=== PATIENT | male | born 1985 | race African-American/Black ===

== ENCOUNTER 2017-07-23 16:18 | Emergency (ER) | payer SELFPAY ==
[~2017-07-23] VITALS: Ht 190.5 cm; Wt 88.5 kg
[2017-07-23 16:21] VITALS: BP 172/124; PULSE 80; RESP 16; TEMP 98.2; O2SAT 98
[2017-07-23] MEDS ORDERED: SODIUM CHLOR 0.9% 1000 ML INJ 1,000 ML IV ONE (16:43)
[2017-07-23] MEDS ORDERED: SODIUM CHLORIDE 0.9% FLUSH 10 ML FLUSH IVF PRN (16:45)
--- NOTE | 2017-07-23 16:50 | PD ---
HPI Chief Complaint: Altered Mental Status Time Seen by Provider: 16:32 Travel History International Travel<30 days: No Contact w/Intl Traveler<30days: No Traveled to known affect area: No History of Present Illness HPI 31-year-old male presents to the emergency department for evaluation of what appears to be a syncopal episode. According to the patient he "fell out". However, he does not know where he was he cannot elaborate on this. He has a text message from a individual who was apparently a bystander who reports that he either had "seizure or stroke". Patient states that he has been under a lot of stress. He reports that his in 19-year-old daughter have been missing for the past 3 days. He states the police are involved. He states this has happened 3 times in the past when he becomes extremely stressed out. Patient reports headache. He answers yes to most questions asked. He reports neck pain and back pain. He reports chest tightness, but no shortness of breath. Patient also reports nausea. He reports history of hypertension, but states he has been off all of his medications for the past 2 months. He denies illicit drug use to me. [facility] Past Medical History Medical History: Denies Significant Hx Cardiovascular Problems: Yes Past Surgical History Surgical History: No Previous Surgery Social History Alcohol Use: No Tobacco Use: No Substance Use: No Allergies-Medications (Allergen,Severity, Reaction): Coded Allergies: No Known Allergies (Verified Allergy, Unknown, 07/23/17) Reported Meds & Prescriptions Reported Meds & Active Scripts Active Lisinopril-Hctz 20-12.5 Mg Tab 1 Tab PO DAILY Review of Systems Except as stated in HPI: all other systems reviewed are Neg Physical Exam Narrative GENERAL: Well-nourished, well-developed male patient, afebrile. SKIN: Focused skin assessment warm/dry. HEAD: Normocephalic. Atraumatic. EYES: No scleral icterus. No injection or drainage. NECK: Supple, trachea midline. No JVD or lymphadenopathy. CARDIOVASCULAR: Regular rate and rhythm without murmurs, gallops, or rubs. Bilateral radial and pedal pulses are 2+. RESPIRATORY: Breath sounds equal bilaterally. No accessory muscle use. Lungs sounds are clear to auscultation. GASTROINTESTINAL: Abdomen soft, non-tender, nondistended. MUSCULOSKELETAL: No cyanosis, or edema. Bilateral upper and lower extremity strength 5/5. All extremities are neurovascularly intact BACK: No obvious deformity. No CVA tenderness. Patient's tenderness to palpation of cervical spine. NEUROLOGICAL: Awake and alert. Cranial nerves II through XII intact. Motor and sensory grossly within normal limits. Five out of 5 muscle strength in all muscle groups. Normal speech. Data Data Last Documented VS Vital Signs Date Time Temp Pulse Resp B/P (MAP) Pulse Ox O2 Delivery O2 Flow Rate FiO2 07/24/17 00:44 62 18 142/96 (111) 96 07/23/17 21:01 Room Air 07/23/17 16:21 98.2 Orders Orders Electrocardiogram (07/23/17 16:43) Complete Blood Count With Diff (07/23/17 16:43) Comprehensive Metabolic Panel (07/23/17 16:43) Magnesium (Mg) (07/23/17 16:43) Ckmb (Isoenzyme) Profile (07/23/17 16:43) Troponin I (07/23/17 16:43) Act Partial Throm Time (Ptt) (07/23/17 16:43) Prothrombin Time / Inr (Pt) (07/23/17 16:43) Urinalysis - C+S If Indicated (07/23/17 16:43) Chest, Single Ap (07/23/17 16:43) Ct Brain W/O Iv Contrast(Rout) (07/23/17 16:43) Ecg Monitoring (07/23/17 16:43) Iv Access Insert/Monitor (07/23/17 16:43) Oximetry (07/23/17 16:43) Sodium Chloride 0.9% Flush (Ns Flush) (07/23/17 16:45) Sodium Chlor 0.9% 1000 Ml Inj (Ns 1000 M (07/23/17 16:43) Lipase (07/23/17 16:43) Drug Screen, Random Urine (07/23/17 16:43) Orthostatic Blood Pressure (07/23/17 16:43) Ct Cerv Spine W/O Contrast (07/23/17 ) CKMB (07/23/17 16:50) CKMB% (07/23/17 16:50) Troponin I (07/23/17 19:50) Electrocardiogram (07/23/17 ) Hydrochlorothiazide (Hydrodiuril) (07/23/17 19:00) Lisinopril (Prinivil) (07/23/17 20:30) Ed Discharge Order (07/24/17 00:09) Labs Laboratory Tests Test 07/23/17 16:50 07/23/17 17:07 07/23/17 20:20 White Blood Count 4.9 TH/MM3 Red Blood Count 4.56 MIL/MM3 Hemoglobin 14.2 GM/DL Hematocrit 40.8 % Mean Corpuscular Volume 89.6 FL Mean Corpuscular Hemoglobin 31.2 PG Mean Corpuscular Hemoglobin Concent 34.9 % Red Cell Distribution Width 12.9 % Platelet Count 278 TH/MM3 Mean Platelet Volume 8.3 FL Neutrophils (%) (Auto) 52.9 % Lymphocytes (%) (Auto) 29.4 % Monocytes (%) (Auto) 10.2 % Eosinophils (%) (Auto) 6.2 % Basophils (%) (Auto) 1.3 % Neutrophils # (Auto) 2.6 TH/MM3 Lymphocytes # (Auto) 1.4 TH/MM3 Monocytes # (Auto) 0.5 TH/MM3 Eosinophils # (Auto) 0.3 TH/MM3 Basophils # (Auto) 0.1 TH/MM3 CBC Comment AUTO DIFF Differential Comment AUTO DIFF CONFIRMED Platelet Estimate NORMAL Platelet Morphology Comment NORMAL Red Cell Morphology Comment NORMAL Prothrombin Time 11.3 SEC Prothromb Time International Ratio 1.0 RATIO Activated Partial Thromboplast Time 32.0 SEC Blood Urea Nitrogen 12 MG/DL Creatinine 1.55 MG/DL Random Glucose 93 MG/DL Total Protein 8.9 GM/DL Albumin 3.8 GM/DL Calcium Level 8.9 MG/DL Magnesium Level 2.2 MG/DL Alkaline Phosphatase 92 U/L Aspartate Amino Transf (AST/SGOT) 50 U/L Alanine Aminotransferase (ALT/SGPT) 31 U/L Total Bilirubin 0.6 MG/DL Sodium Level 140 MEQ/L Potassium Level 3.5 MEQ/L Chloride Level 106 MEQ/L Carbon Dioxide Level 25.9 MEQ/L Anion Gap 8 MEQ/L Estimat Glomerular Filtration Rate 64 ML/MIN Total Creatine Kinase 402 U/L Creatine Kinase MB 1.7 NG/ML Creatine Kinase MB % 0.4 % Troponin I LESS THAN 0.02 NG/ML LESS THAN 0.02 NG/ML Lipase 77 U/L Urine Color YELLOW Urine Turbidity CLEAR Urine pH 6.0 Urine Specific [place] 1.031 Urine Protein TRACE mg/dL Urine Glucose (UA) NEG mg/dL Urine Ketones NEG mg/dL Urine Occult Blood NEG Urine Nitrite NEG Urine Bilirubin NEG Urine Urobilinogen 2.0 MG/DL Urine Leukocyte Esterase NEG Urine RBC 1 /hpf Urine WBC 1 /hpf Urine Mucus FEW /lpf Microscopic Urinalysis Comment CULT NOT INDICATED Urine Opiates Screen NEG Urine Barbiturates Screen NEG Urine Amphetamines Screen NEG Urine Benzodiazepines Screen NEG Urine Cocaine Screen NEG Urine Cannabinoids Screen NEG MDM Medical Decision Making Medical Screen Exam Complete: Yes Emergency Medical Condition: Yes Medical Record Reviewed: Yes Interpretation(s) chest x-ray -CONCLUSION: No acute disease. Differential Diagnosis Syncope versus intracranial abnormality versus electrolyte abnormality versus ACS versus CVA vs. TIA vs. seizure Narrative Course 31-year-old male presents to the emergency department for evaluation of possible syncopal episode. Patient is a poor historian. EKG, CBC, CMP, magnesium, CK, troponin, PTT, PT/INR, UA, lipase, urine drug screen are ordered and pending. Chest x-ray, CT of the cervical spine, and CT of the brain are ordered and pending. Orthostatic vital signs are ordered. EKG shows SR, Hr 73, no acute ST changes. CBC shows no acute abnormality. CMP shows creatinine of 1.55. Lipase is 77 CK is 402. Troponin is less than 0.02. Coags show no acute abnormality. UA is negative. UDS is negative. Chest x-ray shows no acute disease. CT of the brain is normal. CT of the cervical spine is normal. Patient reports being under a lot of stress and being anxious lately due to his and child being missing. I did offer a psych screen, but he declines. He denies any suicidal or homicidal ideation. I will do a second EKG at troponin at the 3 hour jeremy. I discussed this with my attending physician, Dr. Garcia, and she agrees with plan and disposition. I offered chest pain center admission to the patient due to HTN, chest tightness. Patient does state he is feeling better. He was on HCTZ and lisinopril for HTN. I have him a dose of this. The patient declines admission to the chest pain center. Repeat troponin is still pending due to the machine being down in lab. Repeat EKG shows SR, HR 89. Dr. Najera, my attending physician, will position patient once repeat troponin is back. Scripts Lisinopril-Hctz (Lisinopril-Hctz) 20-12.5 Mg Tab 1 TAB PO DAILY for Blood Pressure Management, #30 TAB 0 Refills Prov: Nicole Najera MD 07/23/17 Millie Santos Jul 23, 2017 16:50
--- NOTE | 2017-07-23 17:06 | RADRPT ---
EXAM DATE/TIME: 07/23/2017 16:53 [facility] COMPARISON: No previous studies available for comparison. INDICATIONS : Syncope. MEDICAL HISTORY : None. SURGICAL HISTORY : None. ENCOUNTER: Initial ACUITY: 1 day PAIN SCORE: 09/27 LOCATION: Bilateral chest FINDINGS: A single view of the chest demonstrates the lungs to be symmetrically aerated without evidence of mas s, infiltrate or effusion. The cardiomediastinal contours are unremarkable. Osseous structures are intact. CONCLUSION: No acute disease. Brody Sparks MD on July 23, 2017 at 17:04 Board Certified Radiologist. This report was verified electronically.
[2017-07-23 17:34] LABS: AUTOMATED NEUTROPHIL # 2.6 TH/MM3 (1.8-7.7); BASOPHIL # 0.1 TH/MM3 (0-0.2); BASOPHIL % 1.3 % (0.0-2.0); EOSINOPHIL # 0.3 TH/MM3 (0-0.4); EOSINOPHIL % 6.2 % (0.0-4.0); HEMATOCRIT 40.8 % (39.0-51.0); LYMPH % 29.4 % (9.0-44.0); LYMPHOCYTE # 1.4 TH/MM3 (1.0-4.8); MEAN CELL VOLUME 89.6 FL (80.0-100.0); MEAN CORPUSCULAR HEMOGLOBIN 31.2 PG (27.0-34.0); MEAN CORPUSCULAR HGB CONC 34.9 % (32.0-36.0); MONO % 10.2 % (0.0-8.0); NEUT % 52.9 % (16.0-70.0); PLATELET COUNT 278 TH/MM3 (150-450); RED BLOOD COUNT 4.56 MIL/MM3 (4.50-5.90); RED CELL DISTRIBUTION WIDTH 12.9 % (11.6-17.2); WHITE BLOOD COUNT 4.9 TH/MM3 (4.0-11.0)
[2017-07-23 17:35] LABS: HEMO FLAGS AUTO DIFF
[2017-07-23 17:46] LABS: PROTHROMBIN TIME - PATIENT 11.3 SEC (9.8-11.6)
[2017-07-23 17:58] LABS: BLOOD, URINE NEG (NEG); GLUCOSE,URINE NEG (NEG); KETONE, URINE NEG (NEG); MUCUS URINE FEW /lpf (OCC); NITRITE,URINE NEG (NEG); URINE COLOR YELLOW (YELLW/STRAW)
[2017-07-23 18:01] LABS: ANION GAP 8 MEQ/L (5-15); AST (GOT) 50 U/L (15-37); BICARBONATE 25.9 MEQ/L (21.0-32.0); BLOOD UREA NITROGEN 12 MG/DL (7-18); CHLORIDE 106 MEQ/L (98-107); GLOMERULAR FILTRATION RATE 64 ML/MIN (>89); MAGNESIUM 2.2 MG/DL (1.5-2.5); POTASSIUM 3.5 MEQ/L (3.5-5.1); SODIUM (NA) 140 MEQ/L (136-145)
--- NOTE | 2017-07-23 18:01 | RADRPT ---
EXAM DATE/TIME: 07/23/2017 17:42 [facility] COMPARISON: No previous studies available for comparison. INDICATIONS : Possible syncopal episode today, neck pain. RADIATION DOSE: 56.35 CTDIvol (mGy) MEDICAL HISTORY : Hypertension. SURGICAL HISTORY : None. ENCOUNTER: Initial ACUITY: 1 day PAIN SCALE: 0/10 LOCATION: Bilateral head TECHNIQUE: Multiple contiguous axial images were obtained of the head. Using automated exposure control and adj ustment of the mA and/or kV according to patient size, radiation dose was kept as low as reasonably a chievable to obtain optimal diagnostic quality images. DICOM format image data is available electro nically for review and comparison. FINDINGS: CEREBRUM: The ventricles are normal for age. No evidence of midline shift, mass lesion, hemorrhage or acute in farction. No extra-axial fluid collections are seen. POSTERIOR FOSSA: The cerebellum and brainstem are intact. The 4th ventricle is midline. The cerebellopontine angle i s unremarkable. EXTRACRANIAL: The visualized portion of the orbits is intact. SKULL: The calvaria is intact. No evidence of skull fracture. CONCLUSION: Normal examination. Brody Sparks MD on July 23, 2017 at 17:58 Board Certified Radiologist. This report was verified electronically.
[2017-07-23 18:02] LABS: COMMENT (UR) CULT NOT INDICATED; CULTURE IF INDICATED CULT NOT INDICATED
--- NOTE | 2017-07-23 18:04 | RADRPT ---
EXAM DATE/TIME: 07/23/2017 17:42 [facility] COMPARISON: No previous studies available for comparison. INDICATIONS : Possible syncopal episode today, neck pain. RADIATION DOSE: 33.84 CTDIvol (mGy) MEDICAL HISTORY : Hypertension. SURGICAL HISTORY : None. ENCOUNTER: Initial ACUITY: 1 day PAIN SCALE: 7/10 LOCATION: Bilateral neck TECHNIQUE: Volumetric scanning of the cervical spine was performed. Multiplanar reconstructions in the sagittal, coronal and oblique axial planes were performed. Using automated exposure control and adjustment o f the mA and/or kV according to patient size, radiation dose was kept as low as reasonably achievable to obtain optimal diagnostic quality images. DICOM format image data is available electronically f or review and comparison. FINDINGS: VERTEBRAE: Normal vertebral body height. ALIGNMENT: No evidence of subluxation. C2-C3: The bony spinal canal is normal in size. No evidence of disc bulge or herniation. The neural forami na are bilaterally patent. C3-C4: The bony spinal canal is normal in size. No evidence of disc bulge or herniation. The neural forami na are bilaterally patent. C4-C5: The bony spinal canal is normal in size. No evidence of disc bulge or herniation. The neural forami na are bilaterally patent. C5-C6: The bony spinal canal is normal in size. No evidence of disc bulge or herniation. The neural forami na are bilaterally patent. C6-C7: The bony spinal canal is normal in size. No evidence of disc bulge or herniation. The neural forami na are bilaterally patent. C7-T1: The bony spinal canal is normal in size. No evidence of disc bulge or herniation. The neural forami na are bilaterally patent. CONCLUSION: Normal examination. Brody Sparks MD on July 23, 2017 at 18:01 Board Certified Radiologist. This report was verified electronically.
[2017-07-23 18:06] LABS: ALKALINE PHOSPHATASE 92 U/L (45-117); ALT (GPT) 31 U/L (12-78); CREATINE KINASE 402 U/L (39-308); TOTAL BILIRUBIN ADULT 0.6 MG/DL (0.2-1.0)
[2017-07-23 18:08] VITALS: RESP 16; O2SAT 97
[2017-07-23 18:14] LABS: PLATELET ESTIMATE SMEAR NORMAL (NORMAL); PLATELET MORPHOLOGY NORMAL (NORMAL); SCAN/DIFF AUTO DIFF CONFIRMED
[2017-07-23 18:18] LABS: CKMB 1.7 NG/ML (0.5-3.6)
[2017-07-23] MEDS ORDERED: HYDROCHLOROTHIAZIDE 25 MG TAB PO ONE (19:00)
[2017-07-23 20:09] VITALS: BP 180/120; PULSE 72; O2SAT 99
[2017-07-23] MEDS ORDERED: LISINOPRIL 10 MG TAB PO ONE (20:30)
[2017-07-23 21:01] VITALS: BP 170/122; PULSE 69; RESP 16; O2SAT 98
--- NOTE | 2017-07-23 21:57 | EKG ---
Date Performed: 07/23/2017 Time Performed: 20:22:43 PTAGE: 31 years EKG: Sinus rhythm NONSPECIFIC T-WAVE ABNORMALITY BORDERLINE ECG PREVIOUS TRACING : 07/23/2017 17.09 No significant change from previous tracing noted. DOCTOR: Adan Caicedo Interpretating Date/Time 07/23/2017 21:57:11
--- NOTE | 2017-07-23 22:03 | EKG ---
Date Performed: 07/23/2017 Time Performed: 17:09:27 PTAGE: 31 years EKG: Sinus rhythm NONSPECIFIC T-WAVE ABNORMALITY ABNORMAL ECG NO PREVIOUS TRACING DOCTOR: Adan Caicedo Interpretating Date/Time 07/23/2017 22:00:52
[2017-07-23] MEDS ORDERED: LISI20TA PO (23:43)
--- NOTE | 2017-07-24 00:41 | PD ---
Data Data Last Documented VS Vital Signs Date Time Temp Pulse Resp B/P (MAP) Pulse Ox O2 Delivery O2 Flow Rate FiO2 07/24/17 00:44 62 18 142/96 (111) 96 07/23/17 21:01 Room Air 07/23/17 16:21 98.2 Orders Orders Electrocardiogram (07/23/17 16:43) Complete Blood Count With Diff (07/23/17 16:43) Comprehensive Metabolic Panel (07/23/17 16:43) Magnesium (Mg) (07/23/17 16:43) Ckmb (Isoenzyme) Profile (07/23/17 16:43) Troponin I (07/23/17 16:43) Act Partial Throm Time (Ptt) (07/23/17 16:43) Prothrombin Time / Inr (Pt) (07/23/17 16:43) Urinalysis - C+S If Indicated (07/23/17 16:43) Chest, Single Ap (07/23/17 16:43) Ct Brain W/O Iv Contrast(Rout) (07/23/17 16:43) Ecg Monitoring (07/23/17 16:43) Iv Access Insert/Monitor (07/23/17 16:43) Oximetry (07/23/17 16:43) Sodium Chloride 0.9% Flush (Ns Flush) (07/23/17 16:45) Sodium Chlor 0.9% 1000 Ml Inj (Ns 1000 M (07/23/17 16:43) Lipase (07/23/17 16:43) Drug Screen, Random Urine (07/23/17 16:43) Orthostatic Blood Pressure (07/23/17 16:43) Ct Cerv Spine W/O Contrast (07/23/17 ) CKMB (07/23/17 16:50) CKMB% (07/23/17 16:50) Troponin I (07/23/17 19:50) Electrocardiogram (07/23/17 ) Hydrochlorothiazide (Hydrodiuril) (07/23/17 19:00) Lisinopril (Prinivil) (07/23/17 20:30) Ed Discharge Order (07/24/17 00:09) Labs Laboratory Tests Test 07/23/17 16:50 07/23/17 17:07 07/23/17 20:20 White Blood Count 4.9 TH/MM3 Red Blood Count 4.56 MIL/MM3 Hemoglobin 14.2 GM/DL Hematocrit 40.8 % Mean Corpuscular Volume 89.6 FL Mean Corpuscular Hemoglobin 31.2 PG Mean Corpuscular Hemoglobin Concent 34.9 % Red Cell Distribution Width 12.9 % Platelet Count 278 TH/MM3 Mean Platelet Volume 8.3 FL Neutrophils (%) (Auto) 52.9 % Lymphocytes (%) (Auto) 29.4 % Monocytes (%) (Auto) 10.2 % Eosinophils (%) (Auto) 6.2 % Basophils (%) (Auto) 1.3 % Neutrophils # (Auto) 2.6 TH/MM3 Lymphocytes # (Auto) 1.4 TH/MM3 Monocytes # (Auto) 0.5 TH/MM3 Eosinophils # (Auto) 0.3 TH/MM3 Basophils # (Auto) 0.1 TH/MM3 CBC Comment AUTO DIFF Differential Comment AUTO DIFF CONFIRMED Platelet Estimate NORMAL Platelet Morphology Comment NORMAL Red Cell Morphology Comment NORMAL Prothrombin Time 11.3 SEC Prothromb Time International Ratio 1.0 RATIO Activated Partial Thromboplast Time 32.0 SEC Blood Urea Nitrogen 12 MG/DL Creatinine 1.55 MG/DL Random Glucose 93 MG/DL Total Protein 8.9 GM/DL Albumin 3.8 GM/DL Calcium Level 8.9 MG/DL Magnesium Level 2.2 MG/DL Alkaline Phosphatase 92 U/L Aspartate Amino Transf (AST/SGOT) 50 U/L Alanine Aminotransferase (ALT/SGPT) 31 U/L Total Bilirubin 0.6 MG/DL Sodium Level 140 MEQ/L Potassium Level 3.5 MEQ/L Chloride Level 106 MEQ/L Carbon Dioxide Level 25.9 MEQ/L Anion Gap 8 MEQ/L Estimat Glomerular Filtration Rate 64 ML/MIN Total Creatine Kinase 402 U/L Creatine Kinase MB 1.7 NG/ML Creatine Kinase MB % 0.4 % Troponin I LESS THAN 0.02 NG/ML LESS THAN 0.02 NG/ML Lipase 77 U/L Urine Color YELLOW Urine Turbidity CLEAR Urine pH 6.0 Urine Specific [place] 1.031 Urine Protein TRACE mg/dL Urine Glucose (UA) NEG mg/dL Urine Ketones NEG mg/dL Urine Occult Blood NEG Urine Nitrite NEG Urine Bilirubin NEG Urine Urobilinogen 2.0 MG/DL Urine Leukocyte Esterase NEG Urine RBC 1 /hpf Urine WBC 1 /hpf Urine Mucus FEW /lpf Microscopic Urinalysis Comment CULT NOT INDICATED Urine Opiates Screen NEG Urine Barbiturates Screen NEG Urine Amphetamines Screen NEG Urine Benzodiazepines Screen NEG Urine Cocaine Screen NEG Urine Cannabinoids Screen NEG MDM Medical Record Reviewed: Yes Supervised Visit with PRAFUL: Yes Interpretation(s) Last Impressions Head CT 07/23/17 1643 Signed Impressions: Service Date/Time: Sunday, July 23, 2017 17:42 - CONCLUSION: Normal examination. Brody Sparks MD Chest X-Ray 07/23/17 1643 Signed Impressions: Service Date/Time: Sunday, July 23, 2017 16:53 - CONCLUSION: No acute disease. Brody Sparks MD Cervical Spine CT 07/23/17 0000 Signed Impressions: Service Date/Time: Sunday, July 23, 2017 17:42 - CONCLUSION: Normal examination. Brody Sparks MD Narrative Course I, Dr. Najera, have reviewed the advance practice practitioner's documentation and am in agreement, met with the patient face to face, made the diagnosis, and the medical decision making was done by me. The patient was initially evaluated by Millie. Please see their complete history and physical. *My assessment and Findings: The patient presents with possible syncope versus seizure and associated chest tightness. The patient reports having increased stress due to his and daughter being missing. The patient on arrival is noted to be hypertensive. The patient reports that he has not been taking his blood pressure medication. During the course of the patients emergency department visit, the patients history, examination, and differential diagnosis were reviewed with the patient. The patient was placed on a scalehouse attendant with oximetry and frequent blood pressure monitoring. The patient had IV access obtained and blood work sent for analysis. The patient was initially provided hydrochlorothiazide for elevated blood pressure followed by lisinopril for continued elevated blood pressure. The patients laboratory studies were reviewed and remarkable for a chemistry that shows a creatinine of 1.55, GFR 64, AST 50, CPK 402 with an MB percent is 0.4, troponin I less than 0.02, lipase 77. CBC shows a white count of 4.9, hemoglobin 14.2, platelets 278 with 10.2 monocytes, PT 11.3, PTT 32.0, urine drug screen is negative. Urinalysis unremarkable. Radiology studies were reviewed and remarkable for CT scan of the head and neck showed no acute abnormality, chest x-ray showed no acute cardiopulmonary disease. The patient's case was checked out to me at the conclusion of Millie shift. The patient is pending a repeat troponin. The patient had previously been offered admission to the chest pain center for rule out serial cardiac enzyme protocol. The patient reports that the chest pain has resolved currently and he does not want to be admitted to the hospital. He prefers to follow-up as an outpatient. The patient's repeat troponin is less than 0.02. The patient is resting comfortably and feels better, is alert and in no distress. The patients results and examination findings were discussed with the patient. The repeat examination is unremarkable and benign. The history, exam, diagnostic testing, and current condition do not suggest any significant pathology to warrant further testing, continued ED treatment, admission, or surgical evaluation at this point. The vital signs have been stable. The patient does not have uncontrollable pain, intractable vomiting, or other significant symptoms. The patient's condition is stable and appropriate for discharge. The patient will pursue further outpatient evaluation with a primary care physician or other designated or consulting physician as indicated in the discharge instructions. The patient expressed understanding and was agreeable with this plan. Diagnosis Primary Impression: Syncope Qualified Codes: R55 - Syncope and collapse Additional Impressions: Chest pain Qualified Codes: R07.9 - Chest pain, unspecified Hypertension Qualified Codes: I10 - Essential (primary) hypertension Noncompliance with medication regimen Referrals: [facility] 1 day Primary Care Physician 1 day Patient Instructions: Chest Pain (ED), General Instructions, Hypertension (ED) Med/Other Pt SpecificInfo: Prescription(s) given Scripts Lisinopril-Hctz (Lisinopril-Hctz) 20-12.5 Mg Tab 1 TAB PO DAILY for Blood Pressure Management, #30 TAB 0 Refills Prov: Nicole Najera MD 07/23/17 Disposition: 01 DISCHARGE HOME Condition: Stable Nicole Najera MD Jul 24, 2017 00:41
[2017-07-24 00:44] VITALS: BP 142/96
== END 2017-07-24 00:48 | disposition home or self-care (01) ==
LOC: NEPE 16:18
DX: I10 Essential (primary) hypertension (principal); R55 Syncope and collapse; R07.9 Chest pain, unspecified
CPT/HCPCS: 70450; 71010; 72125; 80053; 80307; 81001; 82550; 82552; 83690; 83735; 84484; 85025; 85610; 85730; 93005; 96360; 96361; 99285; J7030